=== PATIENT | female | born 2005 | race Caucasian/White ===

== ENCOUNTER 2024-05-23 20:59 | Emergency (ER) | payer BC, SELFPAY ==
[2024-05-23 21:28] VITALS: BP 120/65; PULSE 124; RESP 16; TEMP 36.9; O2SAT 100
[2024-05-24 00:29] LABS: Basophils Percent Auto 0.7 % (0.2-1.2); Eosinophils Percent Auto 0.5 % (0-4.4); Hematocrit 49.1 % (37.0-47.0); Hemoglobin 16.7 g/dL (12.0-15.0); Immature Granulocyte Absolute 0.01 K/mm3 (0.00-0.031); Immature Granulocyte Percent A 0.2 % (0-0.5); Lymphocytes Absolute Auto 1.59 K/mm3 (0.9-3.2); Lymphocytes Percent Auto 29.1 % (18.3-44.2); Mean Corpuscular Volume 91.3 fl (80-100); Monocytes Absolute Auto 0.4 K/mm3 (0.1-0.6); Monocytes Percent Auto 6.4 % (2.6-8.5); Neutrophils Absolute Auto 3.4 K/mm3 (1.3-6.7); Neutrophils Percent Auto 63.1 % (45.5-73.1); Platelet Count Result 257 k/mm3 (150-375); Red Blood Count 5.38 M/mm3 (4.2-5.4); Red Cell Distribution Width 12.6 % (11.5-14.5); White Blood Count 5.5 K/mm3 (4.5-10.0)
[2024-05-24 00:39] LABS: Add Urine Microscopic? YES; Appearance Urine Turbid (Clear); Bacteria Urine 4+ /hpf; Bilirubin Urine Negative (Negative); Blood Urine Non-Hemolyzed Trace (Negative); Color Urine Yellow (Yellow); Glucose Urine UA Negative (Negative); Ketones Urine 4+ mg/dL (Negative); Leukocyte Esterase Ur 3+ LEU/UL (Negative); Nitrate Urine Negative (Negative); Non Pathogenic Casts 0-2; Protein Urine 1+ mg/dL (Negative); Specific Grav Ur 1.024 (1.001-1.035); Squamous Epithelial Cell Urine Moderate /hpf (Few); WBC Urine >100 /hpf (0-3); pH Urine 5.5 (5.0-9.0)
[2024-05-24 00:42] LABS: Anion Gap 15 mmol/L (4-12); Blood Urea Nitrogen 15 mg/dL (7-17); Calcium 9.1 mg/dL (8.4-10.2); Carbon Dioxide 25 mmol/L (22-30); Chloride 98 mmol/L (98-107); Estimated CRCL calculation 74 ml/min; Estimated Glomerular Filt Rate > 60; Glucose 78 mg/dL (65-110); Sodium 138 mmol/L (137-145)
[2024-05-24] MEDS: SODIUM CHLORIDE 0.9% IV 1,000 ML 999 ML IV CONT (01:14)
[2024-05-24 01:42] LABS: Trichomonas Vag PCR NOT DETECTED (NOT DETECTE)
[2024-05-24 02:04] LABS: Chlamydia trachomatis NOT DETECTED (NOT DETECTE); Neisseria gonorrhoeae PCR NOT DETECTED (NOT DETECTE)
[2024-05-24] MEDS: SULFAMETHOXAZOLE/TRIMETHOPRIM 800/160 MG DS TABLET 1 TAB PO (03:33)
[2024-05-24] MEDS: valACYclovir HCL 500 MG TABLET 1000 MG PO (03:33)
--- OUTSIDE RECORDS SUMMARY | 2024-05-24 03:36 | XMS_ITS | Encounter Summary ---
Author Organization [facility] [employer] Address [address] [facility] [place] [address] Care Team Providers Care Manager Dental Name Role Phone Shilpa Solorzano MD Primary Care Provider +1- [phone] Encounter Details Date Type Department Care Team (Late st Contact Info) Description 02/22/2022 Patient Outreach [facility] [address] [place] [address]. 5th [place] [address] Winter Maldonado, [facility] Social History Tobacco Use Types Packs/Day Years Used Date Smoking Tobacco: Never Smokeless Tobacco: Never Alcohol Use Standard Drinks/Week Comments Never 0 (1 standard drink = 0.6 oz pur e alcohol) Social Connection and Isolat ion Panel [NHANES] Answer Date Recorded In a typical week, how many times do you talk on the phone with family, friends, or neighbors? More than three times a week 10/25/2019 Frequency of Social Gatherin gs with Friends and Family Not on file 10/25/2019 Attends Sikh Services Not on file 10/24 Do you belong to any clubs o r organizations such as lutheran groups, unions, fraternal or athletic groups, or school groups? Yes 10/25/2019 How often do you attend meet ings of the clubs or organizations you belong to? More than 4 times per year 10/25/2019 Marital Status Not on file 10/25/2019 AUDIT-C Answer Date Recorded Q1: How often do you have a drink containing alc ohol? Never 01/10/2020 Q2: How many drinks containi ng alcohol do you have on a typical day when you are drinking? Patient declined 01/10/2020 Q3: How often do you have si x or more drinks on one occasion? Never 01/10/2020 PHQ-2 Answer Date Recorded PHQ-2 Score 0 01/28/2022 [facility] - Occupational Stress Questionnaire Answer Date Recorded Do you feel stress - tense, restless, nervous, or anxious, or unable to sleep at night because your mind is troubled all the time - these days? Only a little 10/25/2019 Exercise Vital Sign Answer Date Recorde d On average, how many days pe r week do you engage in moderate to strenuous exercise (like a brisk walk)? 5 days 10/25/2019 On average, how many minutes do you engage in exercise at this level? 30 min 10/25/2019 Hunger Vital Sign Answer Date Recorded Within the past 12 months, y ou worried that your food would run out before you got the money to buy more. Never true 01/10/20 20 Within the past 12 months, t he food you bought just didn't last and you didn't have money to get more. Never true 01/10/2020 PRAPARE - Transportation Answer Date Re corded In the past 12 months, has l ack of transportation kept you from medical appointments or from getting medications? No 12/27 In the past 12 months, has l ack of transportation kept you from meetings, work, or from getting things needed for daily living? No 01/10/2020 Education Answer Date Recorded What is the highest level of school you have completed or the highest degree you have received? 9th grade 10/25/2019 Sex and Gender Information Value Date Recorded Sex Assigned at Female 07/20/2018 12:13 PM EDT Gender Identity Male 04/19/2022 8:27 AM EST Sexual Orientation Bisexual 04/29/2024 7: 51 PM EST COVID-19 Exposure Response Date Recorded In the last 10 days, have yo u been in contact with someone who was confirmed or suspected to have Coronavirus/COVID-19? No / Unsure 01/28/2022 2:35 PM EDT documented as of this encounter Plan of Treatment Upcoming Encounters Date Type Department Care Team (Late st Contact Info) Description 05/06/2025 12:45 PM EST Office Visit [address] Adult Primary Care [address] [phone] Shilpa Solorzano MD [address] [place] [phone] documented as of this encounter Visit Diagnoses Not on filedocumented in this encounter Additional Health Concerns Assessment Noted Time PHQ-9 Depression Total Score: 2 10/26/19 7:00 AM EDT A fall risk assessment has been complete d for the patient 01/28/2022 3:11 PM EDT documented as of this encounter Care Teams Manager Dental Relationship Specialty Start Date End Date Shilpa Solorzano MD [address] [place] [phone] PCP - General Internal Medicine 04/23/22 documented as of this encounter
--- OUTSIDE RECORDS SUMMARY | 2024-05-24 03:36 | XMS_ITS | Clinical Summary ---
Author Organization [facility] Address [address] [facility] [place] [address] Care Team Providers Care User Experience Architect Name Role Phone Shilpa Solorzano MD Primary Care Provider +1- [phone] Allergies No known active allergies Medications Medication Sig Dispensed Refills Start Date End Date Status BD LUER-ADAM SYRINGE 3 mL 25 x 5/8 syringe USE ONCE EVERY 14 DAYS FOR INJECTION INSTRUCTED. 3 11/23/2018 Active silicone adhesive 1.4 X 6 stripIndications: Post-operative state Apply 1 application topically 2 (two) times a day. 10 strip 8 04/26/2022 Active Additional Information Patient not taking.Reported on 04/30/2024 syringe with needle 1 mL 25 gauge x 5/8 syringeIndication s:Gender dysphoria Use once every 14 days for injection as instructed. 13 each 3 10/22/2022 Active Additional Information Patient not taking.Reported on 04/30/2024 buPROPion SR (WELLBUTRIN SR) 150 mg 12 hr tabletIndications :Depression, unspecified depression type Take 1 tablet (150 mg total) by mouth daily for 7 days, THEN 1 tablet (150 mg total) 2 (two) times a day. 187 tablet 3 09/26/2023 5 Active testosterone cypionate (DEPO-TESTOTERONE ) 200 mg/mL injectionIndicati ons:Gender dysphoria Inject 0.5 mL (100 mg total) into the shoulder, thigh, or buttocks every 14 (fourteen) days. 3 mL 2 05/11/2024 5 Active testosterone cypionate (DEPO-TESTOTERONE ) 200 mg/mL injectionIndicati ons:Gender dysphoria Inject 0.5 mL (100 mg total) into the shoulder, thigh, or buttocks every 14 (fourteen) days. 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 Gender dysphoria Acne vulgaris Social anxiety disorder of childhood Encounters Date Type Department Care Team Description 05/11/2024 Orders Only [address] Adult Primary Care [address] [place] [phone] Shilpa Solorzano MD Gender dysphoria 04/30/2024 4:00 PM EST Office Visit [address] Adult Primary Care [address] [place] [phone] Shilpa Solorzano MD Gender dysphoria (Primary Dx) 04/29/2024 Travel 02/24/2024 Orders Only [address] Primary Care [address] [place] [phone] Shilpa Solorzano MD Gender dysphoria from Last 3 Months Immunizations Name Administration Dates Next Due 6mo+ Flucelvax IIV4 Single D ose Syringe 03/08/2022,01/26/2019,02/05/2018 DTaP 09/19/2009, 6,2004,09/18,2004 Flumist IIV4 Live Intranasal 02/10/2013 HPV Gardasil, 9-Valent 11/06/2017,10/30/2016 Hep A, Unspecified 11/12/2012 Hep B, Ped/Adol Dose 11/12/2012,10/26/19 05,2004,06/04 Hepatitis A, Pediatric 10/30/2016,11/12/2012 Hib (PRP-T) 2004,2004,2004 IPV 09/18/2009, 5,2004,06/04 Influenza TIV (IM) 02/11/2012, 0,01/09/2009,01/03,04/08/2005 Influenza, Quadrivalent 02/18/2020,02/10/2013, MMR 09/18/2009,04/08/2005 Meningococcal Group B 04/23/2022,12/14/2020 Meningococcal MCV4P 10/30/2016 Meningococcal, Menactra, MCV4P 12/14/2020,2016 Pediarix, DTaP/IPV/HepB combined, IM 2004, 2004,2004 Pneumococcal Conjugate 04/08/2005,2004,2004,06/04 Tdap 10/30/2016,11/16/2015 Varicella 09/18/2009,04/08/2005 covid-19 (12 yrs and older) mRNA BIvalent vaccine (Pfizer) 03/08/2022 covid-19 mRNA monovalent vac cine (Pfizer) 09/28/2020,08/17/2020 Family History Medical History Relation Comments No Known Problems Father Polycystic ovary syndrome Mother Relation Status Comments Father Mother Social History Tobacco Use Types Packs/Day Years Used Date Smoking Tobacco: Never Smokeless Tobacco: Never Tobacco Cessation:Counseling Given: Not Answered Alcohol Use Standard Drinks/Week Comments Never 0 (1 standard drink = 0.6 oz pur e alcohol) [facility] Utilities Answer Date Recorded In the past 12 months has [employer], [email or web address], oil, or water [employer] threatened to shut off services in your home? No 04/30/2024 Social Connection and Isolat ion Panel [NHANES] Answer Date Recorded In a typical week, how many times do you talk on the phone with family, friends, or neighbors? More than three times a week 10/25/2019 Frequency of Social Gatherin gs with Friends and Family Not on file 10/25/2019 Attends Worship Services Not on file 10/24 Do you belong to any clubs o r organizations such as jain groups, unions, fraternal or athletic groups, or [...] more drinks on one occasion? Never 01/10/2020 Overall Financial Resource Strain (CARDIA) Answe r Date Recorded How hard is it for you to pa y for the very basics like food, housing, medical care, and heating? Not hard at all 04/30/2024 PHQ-2 Answer Date Recorded PHQ-2 Total Score 0 04/30/2024 [facility] - Occupational [...] the money to buy more. Never true 04/30/19 25 Within the past 12 months, t he food you bought just didn't last and you didn't have money to get more. Never true 04/30/2024 PRAPARE - Transportation Answer Date Re corded In the past 12 months, has l ack of transportation kept you from medical appointments or from getting medications? No 06/2024 In the past 12 months, has l ack of transportation kept you from meetings, work, or from getting things needed for daily living? No 04/30/2024 Housing Stability Vital Sign Answer Randall e Recorded In the last 12 months, was t here a time when you were not able to pay the mortgage or rent on time? No 09/26/2023 In the last 12 months, how many places have you lived? 1 09/26/2023 In the last 12 months, was t here a time when you did not have a steady place to sleep or slept in a skilled nursing (including now)? No 09/26/2023 Housing Stability Vital Sign Answer Randall e Recorded In the last 12 months, was t here a time when you were not able to pay the mortgage or rent on time? No 04/30/2024 In the past 12 months, how m any times have you moved where you were living? 1 04/30/2024 At any time in the past 12 [facility], were you homeless or living in a skilled nursing (including now)? No 04/30/2024 Education Answer Date Recorded What is the highest level of school you have completed or the highest degree you have received? 9th grade 10/25/2019 Sex and Gender Information Value Date Recorded Sex Assigned at Female 07/20/2018 12:13 PM EDT Gender Identity Male 04/19/2022 8:27 AM EST Sexual Orientation Bisexual 04/29/2024 7: 51 PM EST Last Filed Vital Signs Vital Sign Reading Time Taken Comments Blood Pressure 116/76 04/30/2024 4:04 PM EST Pulse 80 04/30/2024 4:04 PM EST Temperature 36.6 ??C (97.8 ??F) 04/30/2024 4:04 PM ES T Respiratory Rate 18 04/30/2024 4:04 PM EST Oxygen Saturation 99% 11/21/2023 1:54 PM EDT Inhaled Oxygen Concentration - - Weight 54.2 kg (119 lb 7.8 oz) 04/30/2024 4:04 P M EST Height 165.1 cm (5' 5 ) 11/21/2023 1:54 PM EDT Body Mass Index 19.88 11/21/2023 1:54 PM EDT Plan of Treatment Upcoming Encounters Date Type Department Care Team (Late st Contact Info) Description 05/06/2025 12:45 PM EST Office Visit [address] Adult Primary Care [address] [place] [phone] Shilpa Solorzano MD [address] [address] Health Maintenance Due Date Last Done Comments Well Child Visit 3-21 Years 12/14/2021 12/14/2020, 0 06/05/2018 Hepatitis C Screening 2022 Covid Vaccines (2023- season) 2023 03/21/2023, 03/08/2022, 04/19/2021, Additional history exists Influenza Vaccine (#1) 2024 , 02/18/2020, 01/26/2019, Additional history exists Gonorrhea Screening 04/30/2025 04/30/2024, DTaP,Tdap,and Td Vaccines (8 - Td or Tdap) 10/30/2026 10/30/2016, 11/16/2015, 09/19/2009, Additional history exists Chlamydia Screening 11/21/2039 04/30/2024, 04/30/2024, 11/21/2023, Additional history exists MMR Vaccines Completed 09/18/2009, 04/08/2005 Hepatitis B Vaccines Completed 11/12/2012, 2004, 2004, Additional history exists HPV Vaccines Completed 11/06/2017, 10/30/2016 Meningococcal ACWY Vaccines Completed 11/26, 10/30/2016, 10/30/2016 Meningococcal B Vaccines Completed 04/23/2022, 11/26 Procedures Procedure Name Priority Date/Time Associated Diagnosis Comments CBC Routine 04/30/2024 4:50 PM EST Gender dysphoria TESTOSTERONE Routine 04/30/2024 4:50 PM EST Gender dysphoria LAB ONLY: GONORRHEA DNA PCR ([facility]) Routine 04/30/2024 4:50 PM EST Gender dysphoria LAB ONLY: CHLAMYDIA DNA PCR ([facility]) Routine 04/30/2024 4:50 PM EST Gender dysphoria CHLAMYDIA AND GONORRHEA DNA PCR Routine 04/30/2024 4:50 PM EST Gender dysphoria from Last 3 Months Results * Chlamydia DNA PCR (04/30/2024 4:50 PM EST) Pathologist [facility] Chlamydia Not Detected Not Detected LYNDA CHAU OBSERVATION METHOD 05/03/2024 4:06 PM EST [facility] Urine Urine specimen obtained by clean catch procedure / Unknown 04/30/2024 4:50 PM EST 04/30/2024 4:50 PM EST Shilpa Solorzano MD LAB MICROBIOLOGY - GENERAL ORDERABLES Performing Organization Address [facility] Co de Phone Number [facility] [address] [place] [address] * Gonorrhea DNA PCR (04/30/2024 4:50 PM EST) Pathologist [facility] Gonorrhea Not Detected Not Detected LYNDA CHAU OBSERVATION METHOD 05/03/2024 4:06 PM EST [facility] Urine Urine specimen obtained by clean catch procedure / Unknown 04/30/2024 4:50 PM EST 04/30/2024 4:50 PM EST Shilpa Solorzano MD LAB MICROBIOLOGY - GENERAL ORDERABLES Performing Organization Address [facility] de Phone Number [facility] [address] [place] [address] * CBC (04/30/2024 4:50 PM EST) Pathologist [facility] WBC 7.5 3.6 - 10.6 K/CUMM 04/30/2024 9:26 PM EST [facility] RBC 4.73 Female: 3.71-5.17, Male: 4.18-5.51 MILLION/MM3 04/30/2024 9:26 PM EST [facility] HGB 14.7 Female: 12.0-15.0, Male: 13.4-17.0 G/DL 04/30/2024 9:26 PM EST [facility] HCT 43.8 Female: 35-49, Male: 40-54 % 04/30/2024 9:26 PM EST [facility] MCV 93 81 - 99 FL 04/30/2024 9:2 6 PM EST [facility] MCH 31 27 - 34 PG 04/30/2024 9:2 6 PM EST [facility] MCHC 34 32 - 36 G/DL 04/30/2024 9 :26 PM EST [facility] RDW - CV 12.7 11.5 - 14.5 % 04/30/2024 9:26 PM EST [facility] PLT 256 150 - 450 K/CUMM 04/30/2024 9:26 PM EST [facility] MPV 10.8 9.4 - 12.4 FL 04/30/2024 9:26 PM EST [facility] Blood Peripheral blood specimen / Unknown Venipuncture / Unknown 04/30/2024 4:50 PM EST 04/30/2024 4:50 PM EST Shilpa Solorzano MD LAB BLOOD ORDERABL ES [facility] [address] [place] [address] * Testosterone (04/30/2024 4:50 PM EST) Testosterone 461.90 NG/DL 04/30/2024 10:21 PM EST [facility] Blood Peripheral blood specimen / Unknown Venipuncture / Unknown 04/30/2024 4:50 PM EST 04/30/2024 4:50 PM EST Shilpa Solorzano MD LAB BLOOD ORDERABL ES [facility] [address] [place] [address] from Last 3 Months Care Teams User Experience Architect Relationship Specialty Start Date End Date Shilpa Solorzano MD [address] [address] PCP - General Internal Medicine 04/23/22
--- OUTSIDE RECORDS SUMMARY | 2024-05-24 03:36 | XMS_ITS | Referral Summary ---
Author Organization [facility] Address [address] [place] [id number] Care Team Providers Care Nursing Care Attendant Name Role Phone Shilpa Solorzano MD Primary Care Provider +1- [phone] Encounters Date Type Department Care Team Description 05/11/2024 Orders Only [address] Adult Primary Care [address] [place] [phone] Shilpa Solorzano MD Gender dysphoria 04/30/2024 4:00 PM EST Office Visit [address] Adult Primary Care [address] [place] [phone] Shilpa Solorzano MD Gender dysphoria (Primary Dx) 04/29/2024 Travel 02/24/2024 Orders Only [address] Adult Primary Care [address] [place] [phone] Shilpa Solorzano MD Gender dysphoria from Last 3 Months Allergies No known active allergies Medications Medication [...] Acne vulgaris Social anxiety disorder of childhood Immunizations Name Administration Dates Next Due 6mo+ [...] covid-19 mRNA monovalent vac cine (Pfizer) 09/28/2020,08/17/2020 Social History Tobacco Use Types Packs/Day Years Used Date Smoking Tobacco: Never Smokeless Tobacco: Never Tobacco Cessation:Counseling Given: Not Answered Alcohol Use Standard Drinks/Week Comments Never 0 (1 standard drink = 0.6 oz pur e alcohol) [facility] [employer] Answer Date Recorded In the past 12 months has [employer], gas, oil, or water [employer] threatened to shut off services in your home? No 04/30/2024 Social Connection and Isolat ion Panel [NHANES] Answer Date Recorded In a typical week, how many times do you talk on the phone with family, friends, or neighbors? More than three times a week 10/25/2019 Frequency of Social Gatherin gs with Friends and Family Not on file 10/25/2019 Attends Mormonism Services Not on file 10/24 Do you belong to any clubs o r organizations such as denominational groups, unions, fraternal or athletic groups, or [...] Date Recorded PHQ-2 Total Score 0 04/30/2024 [facility] Occupat ional [facility] - Occupational Stress Questionnaire Answer Date Recorded [...] place to sleep or slept in a senior living (including now)? No 09/26/2023 Housing Stability Vital Sign Answer Randall e Recorded In the last 12 months, was t here a time when you were not able to pay the mortgage or rent on time? No 04/30/2024 In the past 12 months, how m any times have you moved where you were living? 1 04/30/2024 At any time in the past 12 m [facility], were you homeless or living in a senior living (including now)? No 04/30/2024 Education Answer Date [...] Description 05/06/2025 12:45 PM EST Office Visit [address] Adult Primary Care [address] [place] [phone] Shilpa Solorzano MD [address] [address] Procedures Procedure Name Priority Date/Time Associated Diagnosis [...] Chlamydia DNA PCR (04/30/2024 4:50 PM EST) Chlamydia Not Detected Not Detected LYNDA CHAU OBSERVATION METHOD 05/03/2024 4:06 PM EST [facility] Urine Urine specimen obtained by clean catch procedure / Unknown 04/30/2024 4:50 PM EST 04/30/2024 4:50 PM EST Shilpa Solorzano MD LAB MICROBIOLOGY - GENERAL ORDERABLES Performing Organization Address City/[facility]/ZIP Co de Phone Number [facility] [address] [place] [address] * Gonorrhea DNA PCR (04/30/2024 4:50 PM EST) Gonorrhea Not Detected Not Detected LYNDA CHAU OBSERVATION METHOD 05/03/2024 4:06 PM EST [facility] Urine Urine specimen obtained by clean catch procedure / Unknown 04/30/2024 4:50 PM EST 04/30/2024 4:50 PM EST Shilpa Solorzano MD LAB MICROBIOLOGY - GENERAL ORDERABLES Performing Organization Address City/[facility]/ZIP Co de Phone Number [facility] [address] [place] [address] * CBC (04/30/2024 4:50 PM EST) WBC 7.5 3.6 - 10.6 K/CUMM 04/30/2024 [...] Shilpa Solorzano MD LAB BLOOD ORDERABL ES Performing Organization Address [facility] Co de Phone Number [facility] [address] [place] [address] * Testosterone (04/30/2024 4:50 PM EST) Testosterone 461.90 NG/DL 04/30/2024 10:21 PM EST [facility] Blood Peripheral blood specimen / Unknown Venipuncture / Unknown 04/30/2024 4:50 PM EST 04/30/2024 4:50 PM EST Shilpa Solorzano MD LAB BLOOD ORDERABL ES Performing Organization Address [facility] Co de Phone Number [facility] [address] [place] [address] from Last 3 Months Care Teams Nursing Care Attendant Relationship Specialty Start Date End Date Shilpa Solorzano MD [address] [address] PCP - General Internal Medicine 04/23/22
--- OUTSIDE RECORDS SUMMARY | 2024-05-24 03:36 | XMS_ITS | Encounter Summary ---
Author Organization [facility] Address [address] [place] [address] Care Team Providers Care Front Desk Worker Name Role Phone Shilpa Solorzano MD Primary Care Provider +1- [phone] Encounter Details Date Type Department Care Team (Late st Contact Info) Description 04/15/2022 Prep for Case [facility] [address] [place] [phone] Melvi Callahan MD Gender dysphoria (Primary Dx) Social History Tobacco Use Types Packs/Day Years [...] and Family Not on file 10/25/2019 Attends Evangelical Services Not on file 10/24 Do you belong to any clubs o r organizations such as nondenominational groups, unions, fraternal or athletic groups, or [...] care, and heating? Not hard at all 03/30/2022 PHQ-2 Answer Date Recorded PHQ-2 Score 0 01/28/2022 [facility] - Occupational [...] the money to buy more. Never true 03/30/20 22 Within the past 12 months, t he food you bought just didn't last and you didn't have money to get more. Never true 03/30/2022 PRAPARE - Transportation Answer Date Re corded In the past 12 months, has l ack of transportation kept you from medical appointments or from getting medications? No 06/2021 In the past 12 months, has l ack of transportation kept you from meetings, work, or from getting things needed for daily living? No 03/30/2022 Housing Stability Vital Sign Answer Randall e Recorded In the last 12 months, was t here a time when you were not able to pay the mortgage or rent on time? No 03/30/2022 Number of Places Lived in the Last Year Not on f ile 03/30/2022 In the last 12 months, was t here a time when you did not have a steady place to sleep or slept in a chcf (including now)? No 03/30/2022 Education Answer Date Recorded What is the [...] suspected to have Coronavirus/COVID-19? No / Unsure 04/15/2022 5:25 AM EST documented as of this encounter Plan of Treatment Upcoming Encounters Date Type Department Care Team (Late st Contact Info) Description 05/06/2025 12:45 PM EST Office Visit [address] Adult Primary Care [address] [phone] Shilpa Solorzano MD [address] [place] [phone] documented as of this encounter Visit Diagnoses Diagnosis Gender dysphoria- Primary documented in this encounter Additional Health Concerns Assessment Noted Time PHQ-9 Depression Total Score: 2 10/26/19 7:00 AM EDT A fall risk assessment has been complete d for the patient 04/15/2022 6:00 AM EST documented as of this encounter Care Teams Front Desk Worker Relationship Specialty Start Date End Date Shilpa Solorzano MD [address] [place] [phone] PCP - General Internal Medicine 04/23/22 documented as of this encounter
[2024-05-24 04:40] VITALS: BP 120/86; PULSE 76; RESP 16; TEMP 37.1; O2SAT 98
--- NOTE | 2024-05-24 08:38 | ED_ITS ---
HPI - Fever General Chief Complaint: Fever Stated Complaint: fever, n/v, Time Seen by Provider: 05/24/24 02:54 History of Present Illness HPI Narrative: 19-year-old female to male transgender presenting to the emergency department chief complaint of concern for vaginal irritation and potential tear that was discovered after intercourse about 2 weeks prior. She has been having some intermittent bleeding and spotting over the last 2 days. Endorses some discharge in intermittent fever, nauseousness. Patient was otherwise in her normal state of health. Are endorse taking Tylenol ibuprofen earlier today. Last menstrual period approximately 8 years ago secondary to hormone blockers with the transition. Related Data Allergies Allergy/AdvReac Type Severity Reaction Status Date / Time No Known Drug Allergies Allergy Unknown Altered Verified 05/24/24 03:20 Sense of Taste Review of Systems 2 Review of Systems: As reviewed above in HPI Exam 2 Narrative: GENERAL: [Well-appearing, well-nourished, and in no acute distress.] HEAD: [Normocephalic, atraumatic.] EYES: [PERRLA and EOMI.] ENT: Nares clear, no rhinorrhea or epistaxis. Mucous membranes moist. NECK: Supple. CHEST: [Clear to auscultation. No respiratory distress.] HEART: [Regular rate and rhythm]. No murmur heard. [Normal peripheral pulses.] ABDOMEN: [Soft, nondistended], [nontender], [No rigidity or guarding] GENITOURINARY: Herpetic appearing lesions over the inferior portion of the right labia and in between the intergluteal fold, no active discharge but there is tenderness to palpation an expression of some weepage of fluids EXTREMITIES: Normal range of motion. [No edema.] SKIN: Warm, dry, no rash. NEURO: [No focal deficits]. Alert and oriented [x3.] PSYCH: [Normal mood and affect.] Course Vital Signs Vital signs: Vital Signs Temperature 36.9 C 05/23/24 21: Pulse Rate 124 H 05/23/24 21:28 Respiratory Rate 16 05/23/24 21:28 Blood Pressure 120/65 05/23/24 21:28 Pulse Oximetry 100 05/23/24 21:28 Oxygen Delivery Room Air 05/23/24 21:28 Temperature 37.1 C 05/24/24 04:40 Pulse Rate 76 05/24/24 04:40 Respiratory Rate 16 05/24/24 04:40 Blood Pressure 120/86 05/24/24 04:40 Pulse Oximetry 98 05/24/24 04:40 Oxygen Delivery Room Air 05/23/24 21:28 MDM - Fever MDM Narrative Medical decision making narrative: 19-year-old female to male transgender presenting to the emergency department with concerns for possible vaginal tear versus bleeding and pain near her vagina. She has evidence of active herpetic lesions in the inferior portion of the right labia, she is also tachycardic which could be a combination of pain where the reported fever that she had that was responsive to Tylenol. She otherwise appears well, not any acute distress. Fluid bolus was administered, laboratory studies obtained. Normal electrolytes, normal renal function panel, no leukocytosis. Urinalysis shows significant evidence of urinary tract infection. STD panel was negative for gonorrhea, Trichomonas, chlamydia. HSV panel sent out. Patient was started on valacyclovir and Bactrim for treatment of both UTI and genital herpes. Will be sent home with prescriptions for both. Family and patient verbalized understanding treatment plan and return precautions. Medical Records Attestation: I reviewed the patient's medical records. Lab Data Attestation: I reviewed the patient's lab results. 05/24/24 00:21 05/24/24 00:21 Labs: Lab Results 05/24/24 05/24/24 Range/Units 00:21 03:10 WBC 5.5 (4.5-10.0) K/mm3 RBC 5.38 (4.2-5.4) M/mm3 Hgb 16.7 H (12.0-15.0) g/dL Hct 49.1 H (37.0-47.0) % MCV 91.3 (80-100) fl MCH 31.0 (26-34) pg MCHC 34.0 (32-36) g/dl RDW 12.6 (11.5-14.5) % Plt Count 257 (150-375) k/mm3 MPV 10.0 (7.4-10.4) fl Immature Gran % (Auto) 0.2 (0-0.5) % Neut % (Auto) 63.1 (45.5-73.1) % Lymph % (Auto) 29.1 (18.3-44.2) % Josephine % (Auto) 6.4 (2.6-8.5) % Eos % (Auto) 0.5 (0-4.4) % Baso % (Auto) 0.7 (0.2-1.2) % Lymph # (Auto) 1.59 (0.9-3.2) K/mm3 Josephine # (Auto) 0.4 (0.1-0.6) K/mm3 Eos # (Auto) 0.0 (0-0.3) K/mm3 Baso # (Auto) 0.0 (0.0-0.1) K/mm3 Abs Immat Gran (auto) 0.01 (0.00-0.031) K/mm3 Absolute Neuts (auto) 3.4 (1.3-6.7) K/mm3 Absolute Nucleated RBC 0.000 (0.0-0.012) K/mm3 Nucleated RBC % 0.0 (0.0-0.2) % Sodium 138 (137-145) mmol/L Potassium 4.0 (3.4-5.0) mmol/L Chloride 98 (98-107) mmol/L Carbon Dioxide 25 (22-30) mmol/L Anion Gap 15 H (4-12) mmol/L BUN 15 (7-17) mg/dL Creatinine 0.88 (0.7-1.0) mg/dL Estim Creat Clear Calc 74 ml/min Estimated GFR > 60 (59 - ) Glucose 78 (65-110) mg/dL Calcium 9.1 (8.4-10.2) mg/dL Urine Color Yellow (Yellow) Urine Appearance Turbid H (Clear) Urine pH 5.5 (5.0-9.0) Ur Specific Bucklin 1.024 (1.001-1.035) Urine Protein 1+ H (Negative) mg/dL Urine Glucose (UA) Negative (Negative) mg/dL Urine Ketones 4+ H (Negative) mg/dL Ur Blood (Man) Non-hemolyzed trace H (Negative) Urine Nitrate Negative (Negative) Urine Bilirubin Negative (Negative) Urine Urobilinogen 1.0 (<2.0) mg/dL Leukocyte Esterase Rfl 3+ H (Negative) SHANEL/UL Urine RBC 3-5 H (0-2) /hpf Urine WBC >100 H (0-3) /hpf Ur Squamous Epith Cells Moderate (Few) /hpf Urine Bacteria 4+ H /hpf Urine Casts 0-2 C. trachomatis (PCR) Not detected (NOT DETECTE) Herpes Virus Source Pending Herpes Simplex Culture Pending HSV I DNA PCR Pending HSV II DNA PCR Pending HSV (PCR) Source Pending N. gonorrhoeae (PCR) Not detected (NOT DETECTE) T. vaginalis (PCR) Not detected (NOT DETECTE) Discharge Plan Discharge Clinical Impression: Genital herpes, UTI (urinary tract infection) Patient Disposition: Home, Self-Care Condition: Stable Instructions: Antibiotic Form, Genital Herpes Infection (ED), Urinary Tract Infection in Women (DC) Additional Instructions: Follow up with your PCP. ABX for UTI and antivirals for Herpes Patient Language: Yoruba Prescriptions: New valacyclovir 1 gram tablet 1,000 mg PO Q12H 10 Days Qty: 20 0RF sulfamethoxazole-trimethoprim [Bactrim DS] 800-160 mg tablet 1 tablet PO Q12H Qty: 14 0RF Follow-up/Referrals: PHYSICIAN NOT ON STAFF,NONSTAFF [Primary Care Provider] - Time of Disposition: 03:21
[2024-05-28 16:23] LABS: Source NOT GIVEN
== END 2024-05-24 04:41 | disposition home or self-care (01) ==
LOC: ANHED 05-24 03:34
PROVIDERS: Physician Assistant; Emergency Provider Student in an Organized Health Care Education/Training Program
DX: A60.00 Herpesviral infection of urogenital system, unspecified (principal); N39.0 Urinary tract infection, site not specified; F64.0 Transsexualism
CPT/HCPCS: 36415; 80048; 81001; 85025; 87140; 87255; 87491; 87529; 87591; 87661; 96360; 99283; A9270; J7030